=== PATIENT | female | born 1950 | race Caucasian/White ===

== ENCOUNTER → 2016-08-01 | Outpatient (CLI) | payer OTHER ==
[~2016-08-01] MED LIST: ALTACE10 MG PO; BUDEPRION XL300 MG PO; EFFER-K 20 MEQ20 MEQ PO; EFFEXOR37.5 MG PO; HYDROCHLOROTHIA25 MG PO; KEFLEX500 MG PO; KLOR-CON M2020 MEQ PO; MOTRIN100 MG PO; MULTIPLE VITAM1 EACH PO; MULTIVITAMIN1 EAC1 PO; NORCO 5/3251 TABLET PO; PRAVACHOL10 MG PO; PRAVACHOL20 MG PO; PRAVASTATIN SOD20 MG PO; WELLBUTRIN XL300 MG PO
== END | disposition home or self-care (01) ==
LOC: CDC 14:37
DX: Z01.810 Encounter for preprocedural cardiovascular examination (principal); R93.8 Abnormal findings on diagnostic imaging of other specified body structures
CPT/HCPCS: 93000

== ENCOUNTER 2016-08-05 09:36 | Day surgery (SDC) | payer OTHER ==
[~2016-08-05] VITALS: Ht 154.9 cm; Wt 105.2 kg
[2016-08-05 10:05] VITALS: BP 159/88
[2016-08-05 12:50] VITALS: BP 158/84
[2016-08-05 13:30] VITALS: BP 126/80
== END 2016-08-05 13:50 | disposition home or self-care (01) ==
LOC: SDC
PROC: 0UDB8ZX Extraction of Endometrium, Via Natural or Artificial Opening Endoscopic, Diagnostic (ICD-10-PCS; principal; 2016-08-05)
DX: R93.8 Abnormal findings on diagnostic imaging of other specified body structures (principal); D25.0 Submucous leiomyoma of uterus; N85.4 Malposition of uterus; Z87.891 Personal history of nicotine dependence; E78.5 Hyperlipidemia, unspecified; R73.09 Other abnormal glucose; F41.1 Generalized anxiety disorder; I10 Essential (primary) hypertension; E66.9 Obesity, unspecified; Z68.41 Body mass index [BMI] 40.0-44.9, adult; Z80.41 Family history of malignant neoplasm of ovary; Z84.1 Family history of disorders of kidney and ureter; Z91.09 Other allergy status, other than to drugs and biological substances; Z88.8 Allergy status to other drugs, medicaments and biological substances
CPT/HCPCS: 88305; J1100; J2250; J2405; J3010